=== PATIENT | female | born 1975 | race American Indian/Alaskan Native ===

== ENCOUNTER 2021-07-10 12:23 | Emergency (ER) | payer MEDICARE ==
[2021-07-10] MEDS ORDERED: Sodium Chloride 0.9% 10 ML Syringe FLUSH PRN (16:03)
[2021-07-10] MEDS ORDERED: diphenhydrAMINE 50 MG/ML SDV IVPUSH ONE (16:03)
[2021-07-10] MEDS ORDERED: Sodium Chloride 0.9% 1,000 ML IV ONE (16:03)
== END 2021-07-10 18:18 | disposition home or self-care (01) ==
LOC: JP.ED 12:23
DX: T24.011A Burn of unspecified degree of right thigh, initial encounter (principal); N39.0 Urinary tract infection, site not specified; L89.319 Pressure ulcer of right buttock, unspecified stage; J44.9 Chronic obstructive pulmonary disease, unspecified; K21.9 Gastro-esophageal reflux disease without esophagitis; Z72.0 Tobacco use; X19.XXXA Contact with other heat and hot substances, initial encounter
CPT/HCPCS: 36415; 80053; 81001; 85025; 87086; 87088; 87186; 96374; 99283; J1200; J3490; J7030; 99282